=== PATIENT | female | born 1990 | race Caucasian/White ===

== ENCOUNTER 2019-11-11 11:47 | Outpatient (CLI) | payer OTHER, SELFPAY ==
--- NOTE | ~2019-11-11 | XR_ITS ---
EXAMINATION: XR knee LT 3V DATE: 11/11/2019 12:02 INDICATION: Left knee pain. Injury. TECHNIQUE: 3 views of left knee were obtained. COMPARISON: None. FINDINGS: Bone alignment is normal. No fracture. Joint spaces are well maintained. There is no knee j oint effusion. IMPRESSION: 1. Normal left knee. Reviewed, dictated and finalized at location A. IMPRESSION: 1. Normal left knee.
== END 2019-11-11 11:48 | disposition home or self-care (01) ==
PROVIDERS: PCP Family Medicine; Visit Provider Family Medicine
DX: M25.569 Pain in unspecified knee (principal)
CPT/HCPCS: 73562

== ENCOUNTER 2019-11-14 07:06 | Outpatient (CLI) | payer OTHER, SELFPAY ==
[2019-11-14 07:47] LABS: Basophils Absolute Auto 0.1 K/mm3 (0.0-0.1); Basophils Percent Auto 0.6 % (0.2-1.2); Eosinophils Absolute Auto 0.7 K/mm3 (0-0.3); Eosinophils Percent Auto 6.5 % (0-4.4); Hematocrit 40.1 % (37.0-47.0); Hemoglobin 13.2 g/dL (12.0-15.0); Immature Granulocyte Absolute 0.02 K/mm3 (0.00-0.031); Immature Granulocyte Percent A 0.2 % (0-0.5); Lymphocytes Absolute Auto 3.33 K/mm3 (0.9-3.2); Lymphocytes Percent Auto 31.9 % (18.3-44.2); Mean Corpuscular HGB Conc 32.9 g/dl (32-36); Mean Corpuscular Hemoglobin 30.4 pg (26-34); Mean Corpuscular Volume 92.4 fl (80-100); Mean Platelet Volume 9.9 fl (7.4-10.4); Monocytes Absolute Auto 0.7 K/mm3 (0.1-0.6); Monocytes Percent Auto 6.7 % (2.6-8.5); Neutrophils Absolute Auto 5.7 K/mm3 (1.3-6.7); Neutrophils Percent Auto 54.1 % (45.5-73.1); Platelet Count Result 346 k/mm3 (150-375); Red Blood Count 4.34 M/mm3 (4.2-5.4); Red Cell Distribution Width 12.9 % (11.5-14.5); White Blood Count 10.4 K/mm3 (4.5-10.0)
[2019-11-14 08:00] LABS: Alanine Aminotransferase 23 U/L (4-35); Albumin Level 4.3 g/dL (3.5-5.1); Alkaline Phosphatase 103 U/L (38-126); Aspartate Amino Transferase 23 U/L (14-36); Bilirubin,Total 0.4 mg/dL (0.2-1.3); Blood Urea Nitrogen 14 mg/dL (7-17); Carbon Dioxide 24 mmol/L (22-30); Chloride 107 mmol/L (98-107); Cholesterol 153 mg/dL (0-200); Estimated Glomerular Filt Rate > 60; Glucose 104 mg/dL (65-105); HDL Direct 58 mg/dL; Sodium 136 mmol/L (137-145); Triglycerides 64 mg/dL (<150)
[2019-11-14 08:11] LABS: LDL Cholesterol Direct 65 mg/dL
== END 2019-11-14 07:07 | disposition home or self-care (01) ==
LOC: ANHLAB 07:09
PROVIDERS: PCP Family Medicine; Visit Provider Family Medicine
DX: Z13.0 Encounter for screening for diseases of the blood and blood-forming organs and certain disorders involving the immune mechanism (principal); Z13.220 Encounter for screening for lipoid disorders; R63.5 Abnormal weight gain; Z13.1 Encounter for screening for diabetes mellitus
CPT/HCPCS: 36415; 80053; 80061; 84443; 85025

== ENCOUNTER 2020-08-11 12:23 | Outpatient (CLI) | payer OTHER, SELFPAY ==
--- NOTE | ~2020-08-11 | XR_ITS ---
XR_CERV2-3V_CR DATE: 08/11/2020 12:41 INDICATION: Neck pain. No injury. TECHNIQUE: AP, open-mouth, lateral views COMPARISON: None FINDINGS: There is reversal of cervical curvature which may be due to muscle spasm. C1 and C2 are normally aligned and the odontoid process is intact. No fracture or dislocation or lock ed facet or prevertebral soft tissue swelling. Cervical interspaces are well preserved. IMPRESSION: Reversal of cervical curvature Reviewed, dictated and finalized at Location A. Reviewed, dictated and finalized at location A.
== END 2020-08-11 12:24 | disposition home or self-care (01) ==
PROVIDERS: PCP Family Medicine; Visit Provider Family Medicine
DX: M54.2 Cervicalgia (principal)
CPT/HCPCS: 72040

== ENCOUNTER 2020-08-15 09:35 | Outpatient (CLI) | payer OTHER, SELFPAY ==
--- NOTE | ~2020-08-15 | MR_ITS ---
EXAMINATION: MR brain/brain stem wo con DATE: 08/15/2020 10:14 INDICATION: Migraine headaches. TECHNIQUE: Magnetic resonance imaging (MRI) of the brain and brainstem was performed without intraven ous contrast. Sequences included sagittal and axial T1-weighted SE, axial diffusion-weighted FS SE, a xial T2*-weighted GRE, axial T2-weighted FLAIR, and axial T2-weighted FSE. Apparent diffusion coeffic ient (ADC) maps were created. COMPARISON: None. FINDINGS: There are no areas of restricted diffusion to suggest acute infarction. No intracranial hemorrhage or abnormal intracranial mass lesion. There are scattered areas of nonspecific increased T2-weighted si gnal intensity in the cerebral white matter, predominantly involving the deep and periventricular whi te matter. There are no intraparenchymal signal abnormalities seen on the other pulse sequences. The ventricles are symmetric and normal in size. There are no abnormal extra-axial fluid collections. River w voids are seen in the cerebral arteries on the T2-weighted sequences consistent with their expected patency. Mild mucoperiosteal thickening the bilateral ethmoid and maxillary sinuses. Visualized orbi ts and soft tissues are unremarkable. IMPRESSION: 1. Normal brain. Reviewed, dictated and finalized at location A. IMPRESSION: 1. Normal brain.
== END 2020-08-15 09:36 | disposition home or self-care (01) ==
PROVIDERS: PCP Family Medicine; Visit Provider Family Medicine
DX: G43.909 Migraine, unspecified, not intractable, without status migrainosus (principal)
CPT/HCPCS: 70551

== ENCOUNTER 2020-08-27 10:59 | Outpatient (CLI) | payer OTHER, SELFPAY ==
--- NOTE | 2020-08-27 11:02 | ECHO_ITS ---
Patient Info Name: Leona Santana Age: 29 years : 1990 Gender: Female Ht: 66 in Wt: 270 lbs BSA: 2.45 m2 HR: 70 bpm BP: 132 / 99 mmHg Technical Quality: Good Exam Date: 08/27/2020 11:19 AM Exam Location: [facility] Pulmonary Patient Status: Outpatient Admit Date: 08/27/2020 Staff Ordering Physician: Loni Flores DO Corner Trimmer Operator: Mitchel Grant RDCS, RT Attending Provider: Loni Flores DO Referring Physician: Sandra CADENA; Exam Type: CA echo doppler color flow Study Info Indications I34.0 - Nonrheumatic mitral (valve) insufficiency Complete two-dimensional, color flow and Doppler transthoracic echocardiogram is performed. Strain analysis performed. Summary 1. Complete two-dimensional, color flow and Doppler transthoracic echocardiogram is performed. 2. Left ventricular chamber dimension is normal. 3. Left ventricular systolic function is normal, estimated at 60-65%. 4. The left ventricular diastolic function is normal. 5. Global longitudinal strain is mildly abnormal at -16.3%. 6. There is mild mitral valve regurgitation. 7. There is mild tricuspid valve regurgitation. 8. No pulmonary hypertension, estimated pulmonary arterial systolic pressure is 25 mmHg. Left Ventricle Tissue doppler is not performed. Global longitudinal strain is mildly abnormal at -16.3%. Left ventricular chamber dimension is normal. Left ventricular systolic function is normal, estimated at 60-65%. The left ventricular diastolic function is normal. Right Ventricle Right ventricular chamber dimension is normal. Right ventricular systolic function is normal. Left Atria Left atrial chamber dimension is normal. Right Atria Right atrial chamber dimension is normal. Aortic Valve The aortic valve is not well visualized. Cannot determine number of aortic valve leaflets. There is no aortic valve stenosis. There is no aortic valve regurgitation. Pulmonic Valve There is no pulmonic regurgitation. Mitral Valve There is no mitral valve stenosis. There is mild mitral valve regurgitation. Tricuspid Valve There is mild tricuspid valve regurgitation. No pulmonary hypertension, estimated pulmonary arterial systolic pressure is 25 mmHg. Pericardium/Pleural There is no pericardial effusion. Inferior Vena Cava Normal inferior vena cava with >50% collapse upon inspiration consistent with normal right atrial pressure, 5 mmHg. Aorta The aortic root size at the sinus of Valsalva is normal. Left Ventricular Outflow Tract Name Value Normal LVOT 2D LVOT Diameter 2.0 cm LVOT Doppler LVOT Peak Gradient 4 mmHg LVOT Mean Gradient 3 mmHg LVOT VTI 25 cm LVOT VTI/AV VTI Ratio 0.8 LVOT Stroke Volume 77 ml LVOT CO 5.4 l/min LVOT CI 2.2 l/min/m2 Mitral Valve Name Value Nor
== END 2020-08-27 11:00 | disposition home or self-care (01) ==
PROVIDERS: PCP Family Medicine; Visit Provider Family Medicine
DX: I34.0 Nonrheumatic mitral (valve) insufficiency (principal)
CPT/HCPCS: 93306

== ENCOUNTER 2020-10-29 09:00 | Outpatient (RCR) | payer OTHER, SELFPAY ==
--- NOTE | 2020-09-17 09:21 | PTOPEVAL ---
PHYSICAL THERAPY EVALUATION Thank you for referring Leona Santana to [facility].? Leona was evaluated for the dx of cervicalgia/HUERTA. The patient is scheduled to be seen for therapy? 2 x/week for 4 weeks. Please review, sign, date and return this plan of care ALEXYS. I agree with and certify that the following plan of care is medically necessary. Referring Physician Date Attending Provider: DO Leonarda HoneycuttPT Outpatient Evaluation Start: 09/17/20 08:24 Freq: Status: Active Protocol: Document 09/17/20 08:24 MLV (Rec: 09/17/20 09:17 MLV [id number]) Therapy Assessment Status Assessment Status Evaluation Evaluation Information Problem Diagnosis cervicalgia/HUERTA Cause no injury Additional Evaluation Detail Pt reports having HUERTA for many years but the HUERTA has gotten worse and more frequent in the last 6-12 months. 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 Before, the HUERTA occurred about 2-3 times a week rated 3 -4 of 10 pain and had migraines about 2-4x a month ( severe). Pt has 2 children she cares for and does housework/ cooking and started working out about 2 months ago. Pt goes to a gym for workouts and is focused on LE strength and cardio. Diagnostic Tests X-Rays For This Problem Yes: reverse spinal curvature due to spasms Pain Assessment Timing of Pain Assessment Timing of Pain Assessment Assessment Pain Scale Pain Scale Used Numeric (1 - 10) Self Report Pain Assessment Posterior Neck Reported Pain Level 2 Pain Description Tightness Pain Frequency Acute,Chronic Greatest Pain Intensity 6 Pain Aggravating Factors Exercise/Activity Pain Behaviors Guarding Head Reported Pain Level 2 Pain Description Aching Pain Frequency Acute,Chronic Greatest Pain Intensity 5 Pain Aggravating Factors None Pain Behaviors Guarding Pain Score Pain Score 2,2: Self Report Interventions Used Interventions Used By Clinicians Education,Electrical Stimulation,Exercise,Heat Pain Relief Interventions Used By Medication Patient Other Alleviating Interventions tylenol Cervical and Lumbar ROM
--- NOTE | 2020-10-13 07:30 | PCPTNOTE ---
Patient called & cancelled scheduled appointment this date due to over slept unable to attend
--- NOTE | 2020-10-20 07:52 | PCPTNOTE ---
Patient did not show up for scheduled appointment this date; patient answered phone call stating she over slept was unable to make it in.
--- NOTE | 2020-10-26 08:09 | PCPTNOTE ---
Patient did not show up for scheduled appointment this date; left voicemail for reminder call.
--- NOTE | 2020-10-29 09:51 | PTOPEVAL ---
PHYSICAL THERAPY DISCHARGE Thank you for referring Leona Santana to [facility].? The patient has completed 6 visits for the dx of cervicalgia/HUERTA with goals met. DC PT. Please review, sign, date and return this plan of care ALEXYS. I agree with and certify the following plan of care. Referring Physician Date Attending Provider: Loni Flores DO *PT Outpatient Discharge Start: 09/17/20 08:24 Freq: Status: Active Protocol: Document 10/29/20 09:02 MLV (Rec: 10/29/20 09:50 MLV [id number]) Therapy Assessment Status Assessment Status Discharge Evaluation Information Problem Diagnosis cervicalgia/HUERTA Cause no injury Additional Evaluation Detail The patient reports having an appt the 8th for follow up. The patient feels her mobility is 75% better but the headaches are about 25% better. Pt denies trouble with the exercises and is still going to the gym with a workout that works for her. Pt has modifications for neck issues with workouts. Pain Assessment Timing of Pain Assessment Timing of Pain Assessment Assessment Pain Scale Pain Scale Used Numeric (1 - 10) Self Report Pain Assessment Posterior Neck Reported Pain Level 0 Head Reported Pain Level 2 Radicular Pain Location sinus pain today Pain Frequency Acute,Chronic Pain Score Pain Score 0,2: Self Report Interventions Used Interventions Used By Clinicians Electrical Stimulation,Heat, Manual Therapy Techniques Pain Relief Interventions Used By Heat,Medication Patient Cervical and Lumbar ROM Cervical ROM Cervical Flexion (0-60) 70 Query Text:Active in Degrees Cervical Extension (0-70) 55 Query Text:Active in Degrees Cervical Lateral Flexion Right (0-50) 55 Query Text:Active in Degrees Cervical Lateral Flexion Left (0-50) 52 Query Text:Active in Degrees Cervical Rotation Right (0-90) 70 Query Text:Active in Degrees Cervical Rotation Left (0-90) 69 Query Text:Passive in Degrees Posture Posture Sitting Position Additional Posture Comments min to moderate decrease in dowagers hump Palpation Assessment Palpation Palpation 50-75% decrease in spasms at cervical paraspinals, upper traps, levator scapulae, mid
== END 2020-11-01 09:33 | disposition home or self-care (01) ==
LOC: ANHPT 09:00
PROVIDERS: PCP Family Medicine; Visit Provider Family Medicine
DX: M54.2 Cervicalgia (principal); M62.838 Other muscle spasm; G44.209 Tension-type headache, unspecified, not intractable
CPT/HCPCS: 97014; 97110; 97140; 97161; G0283

== ENCOUNTER 2021-05-13 15:56 | Outpatient (CLI) | payer OTHER, SELFPAY ==
--- NOTE | ~2021-05-13 | XR_ITS ---
EXAMINATION: XR shoulder RT min 2V DATE: 05/13/2021 16:32 INDICATION: Right shoulder pain. TECHNIQUE: 4 views of right shoulder were obtained. COMPARISON: None. FINDINGS: Bone alignment is normal. No fracture. There is osteolysis of distal clavicle. The glenohum eral joint is normal. IMPRESSION: 1. Osteolysis of the distal clavicle, which may be seen with repetitive microtrauma or less commonly rheumatoid arthritis or hyperparathyroidism. Reviewed, dictated and finalized at location A. NG PAN TENDER IMPRESSION: 1. Osteolysis of the distal clavicle, which may be seen with repetitive microtr auma or less commonly rheumatoid arthritis or hyperparathyroidism.
== END 2021-05-13 15:57 | disposition home or self-care (01) ==
LOC: ANHIMG 15:58
PROVIDERS: PCP Family Medicine; Visit Provider Family Medicine
DX: M25.511 Pain in right shoulder (principal); M89.511 Osteolysis, right shoulder
CPT/HCPCS: 73030

== ENCOUNTER 2021-07-18 07:00 | Outpatient (RCR) | payer OTHER, SELFPAY ==
--- NOTE | 2021-06-13 08:16 | PTOPEVAL ---
Thank you for referring Leona Santana to [facility] [place].? The patient is scheduled to be seen for therapy? 2 x/week for 5 weeks. Please review, sign, date and return this plan of care ALEXYS. I agree with and certify that the following plan of care is medically necessary. 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 She is not working out and intermittently performs neck exercises. x-ray: Osteolysis of the distal clavicle Subjective Information She was performing bench Query Text:As Reported By Patient/ presses when she felt a pop in Family her shoulder with instant pain. She had increased ache of her shoulder. Reports the pain has increased recently. C/o ache, sharp pain. She uses ice/heat or OTC medication. She did receive an injection. Previous Treatments Previous Treatments For This Problem neck September 2020 Pain Assessment Right Shoulder(s) Reported Pain Level 0 Pain Description Aching,Sharp Lowest Pain Intensity 0 Greatest Pain Intensity 9 Pain Aggravating Factors ADL's,Lifting,Prolonged Position Upper Extremity Range of Motion Scapular/ Shoulder Range of Motion Left Shoulder Flexion - Active 155 Shoulder Extension - Active 40 Shoulder Abduction - Active 160 Shoulder Medial Rotation - Active T7:Reach Behind the Back Shoulder Lateral Rotation - Active T2:Reach Behind the Head Right Scapular: Retraction Hypomobile Scapular: Protraction Hypomobile Scapular Downward Rotation Hypomobile Scapular Upward Rotation Hypomobile Shoulder Flexion - Active 140 Shoulder Extension - Active 48 Shoulder Abduction - Active 150 Shoulder Medial Rotation - Active 60 Shoulder Medial Rotation - Active T11:Reach Behind the Back Shoulder Lateral Rotation - Active 90 Shoulder Lateral Rotation - Active T2:Reach Behind the Head Scapular/Shoulder Range of Motion Pain Limitations Upper Extremity Muscle Strength Testing Scapular/Shoulder Left Scapular Retraction - Middle Trapezius 3 Fair Scapular Retraction - Lower Trapezius 3- Fair - Shoulder Flexion Strength 5 Normal Shoulder Extension Strength 5 Normal Shoulder Abduction Strength 5 Normal Shoulder Medial Rotation
--- NOTE | 2021-06-27 07:20 | PCPTNOTE ---
Patient did not show up for scheduled appointment this date. Unable to call pt due to phone number on file is not a working number.
--- NOTE | 2021-06-29 10:33 | PCPTNOTE ---
Patient called & cancelled scheduled appointment this date due to bad weather.
--- NOTE | 2021-07-07 17:47 | PCPTNOTE ---
Patient was seen on SundayJuly 042021, received treatment for ultrasound with the use of biofreeze and ultrasound gel to right anterior shoulder for pain management with continuous mode setting, 1.5w/cm2 for intensity for 8minutes. This note with take place for documentation for ultrasound charge that was billed for service that date.
--- NOTE | 2021-07-14 13:36 | PCPTNOTE ---
Patient agreed to cancel appointment due to poor weather. She is going to do some extra stretching tonight and will plan to be at her re-assessment next week.
--- NOTE | 2021-07-18 08:16 | PTOPEVAL ---
Physical Therapy Progress Note Thank you for referring Leona Santana to [facility].?Leona has received 7 therapy visits to address her shoulder limitations. She is progressing slowly towards her therapy goals. The patient is scheduled to be seen for therapy? 2 x/week for 3 weeks. Please review, sign, date and return this plan of care ALEXYS. I agree with and certify that the following plan of care is medically necessary. 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 x-ray: Osteolysis of the distal clavicle Subjective Information Reports her shoulder is Query Text:As Reported By Patient/ feeling better, but cont to Family have periods of increased pain. She had increased ache of her shoulder. Increased pain noted with reaching task in all directions, lifting and ADL's. MD visit on 07/20/21. Pain Assessment Right Shoulder(s) Reported Pain Level 1 Pain Description Aching Lowest Pain Intensity 1 Greatest Pain Intensity 7 Pain Aggravating Factors ADL's,Exercise/Activity, Lifting Upper Extremity Range of Motion Scapular/ Shoulder Range of Motion Right Scapular: Retraction Hypomobile Scapular: Protraction Hypomobile Scapular Downward Rotation Hypomobile Scapular Upward Rotation Hypomobile Shoulder Flexion - Active 153 Shoulder Extension - Active 50 Shoulder Abduction - Active 140 Shoulder Medial Rotation - Active 75 Shoulder Medial Rotation - Active T11:Reach Behind the Back Shoulder Lateral Rotation - Active 75 Shoulder Lateral Rotation - Active T2:Reach Behind the Head Scapular/Shoulder Range of Motion Pain Limitations Upper Extremity Muscle Strength Testing Scapular/Shoulder Left Scapular Retraction - Middle Trapezius 3+ Fair + Scapular Retraction - Lower Trapezius 3 Fair Shoulder Flexion Strength 5 Normal Shoulder Extension Strength 5 Normal Shoulder Abduction Strength 5 Normal Shoulder Medial Rotation Strength 5 Normal Shoulder Lateral Rotation Strength 5 Normal Right Scapular Retraction - Middle Trapezius 3+ Fair + Scapular Retraction - Lower Trapezius 3 Fair Shoulder Flexion Strength 3+ Fair + Shoulder Extension Strength 5 Normal Shoulder Abduction Strength 4- Good - Shoulder Medial Rotation Strength 5 Normal Shoulder Lateral Rotation Strength 5 Normal Shoulder Strength Comments pain with fl
--- NOTE | 2021-07-21 12:23 | PCPTNOTE ---
Patient called & cancelled all scheduled appointment this date due to having follow-up appointment with MD who stated she can stop therapy and just focus on stretches and exercises at home. Notified PT to discharge patient at this time.
--- NOTE | 2021-07-22 07:42 | PCPTNOTE ---
Admitting Provider: Attending Provider: Marino Garcia MD Patient:Leona Santana Date of :1990 Physical Therapy Discharge Summary Patient has been recommended for discharge from therapy services per doctor. She has attended 7 therapy visits with slow progress towards her therapy goals. She has been instructed in a HEP to perform to improve her UE limitations. The goals have been partially met at this time. Thank you for referring this patient to [facility]. Please review, sign, date and return this discharge summary ALEXYS. I have been updated about the patient's current status and I agree with discharge from the above service at this time. Referring Physician Date
== END 2021-07-22 11:04 | disposition home or self-care (01) ==
LOC: ANHPT 07:00
PROVIDERS: PCP Family Medicine; Visit Provider Orthopaedic Surgery
DX: M75.81 Other shoulder lesions, right shoulder (principal); M75.51 Bursitis of right shoulder
CPT/HCPCS: 97014; 97035; 97110; 97140; 97162; G0283

== ENCOUNTER 2021-10-14 12:34 | Outpatient (CLI) | payer OTHER, SELFPAY ==
--- NOTE | ~2021-10-14 | CT_ITS ---
EXAMINATION: CT abdomen pelvis w con DATE: 10/14/2021 13:02 INDICATION: Abdominal pain TECHNIQUE: Computed tomography (CT) of the abdomen and pelvis was performed with 75 cc Omnipaque 300 intravenous contrast. The dose-length product was 1316.39 mGy-cm. Automated exposure control and iter ative reconstruction technique were employed. COMPARISON: None. FINDINGS: Lung bases are unremarkable. Heart size normal. No significant pleural or pericardial effus ion. No significant vascular abnormality. No lymphadenopathy. The liver, spleen, pancreas, adrenal glands and kidneys are unremarkable. There are cholecystectomy c lips. Nonobstructive bowel gas pattern. No free air or free fluid. No acute osseous abnormality. No a cute osseous abnormality. IMPRESSION: 1. No acute abdominal abnormality. Reviewed, dictated and finalized at location B.
[2021-10-14 13:27] LABS: Basophils Absolute Auto 0.1 K/mm3 (0.0-0.1); Basophils Percent Auto 0.5 % (0.2-1.2); Eosinophils Absolute Auto 0.2 K/mm3 (0-0.3); Hematocrit 36.5 % (37.0-47.0); Hemoglobin 11.9 g/dL (12.0-15.0); Immature Granulocyte Absolute 0.03 K/mm3 (0.00-0.031); Immature Granulocyte Percent A 0.3 % (0-0.5); Lymphocytes Absolute Auto 2.97 K/mm3 (0.9-3.2); Lymphocytes Percent Auto 26.7 % (18.3-44.2); Mean Corpuscular HGB Conc 32.6 g/dl (32-36); Mean Corpuscular Hemoglobin 30.4 pg (26-34); Mean Corpuscular Volume 93.4 fl (80-100); Mean Platelet Volume 10.3 fl (7.4-10.4); Monocytes Absolute Auto 0.8 K/mm3 (0.1-0.6); Monocytes Percent Auto 7.1 % (2.6-8.5); Neutrophils Absolute Auto 7.1 K/mm3 (1.3-6.7); Neutrophils Percent Auto 63.4 % (45.5-73.1); Platelet Count Result 315 k/mm3 (150-375); Red Blood Count 3.91 M/mm3 (4.2-5.4); Red Cell Distribution Width 12.7 % (11.5-14.5); White Blood Count 11.1 K/mm3 (4.5-10.0)
[2021-10-14 13:39] LABS: Alanine Aminotransferase 16 U/L (6-35); Albumin Level 3.9 g/dL (3.5-5.1); Alkaline Phosphatase 76 U/L (38-126); Amylase 142 U/L (30-110); Anion Gap 6 mmol/L (8-16); Aspartate Amino Transferase 21 U/L (14-36); Bilirubin,Total 0.2 mg/dL (0.2-1.3); Blood Urea Nitrogen 10 mg/dL (7-17); Calcium 8.3 mg/dL (8.4-10.2); Carbon Dioxide 22 mmol/L (22-30); Chloride 106 mmol/L (98-107); Estimated Glomerular Filt Rate > 60; Glucose 102 mg/dL (65-110); Lipase 128 U/L (23-300); Potassium 4.5 mmol/L (3.4-5.0); Sodium 134 mmol/L (137-145)
[2021-10-14 14:05] LABS: SPREG INTERNAL CONTROL Positive; Serum Qual hCG Negative
[2021-10-14 15:50] LABS: Thyroid Stimulating Hormone Reflex 0.449 uIU/mL (0.465-4.68)
[2021-10-14 17:20] LABS: Free T4 Free Thyroxine Reflex 0.85 ng/dL (0.78-2.19)
[2021-10-14 19:50] LABS: Total Triiodothyronine (T3) 1.38 NG/ML (0.97-1.69)
== END 2021-10-14 12:35 | disposition home or self-care (01) ==
LOC: ANHIMG 12:36
PROVIDERS: PCP Family Medicine; Visit Provider Family Medicine
DX: R10.9 Unspecified abdominal pain (principal); R19.7 Diarrhea, unspecified
CPT/HCPCS: 36415; 74177; 80053; 82150; 83690; 84439; 84443; 84480; 84703; 85025; 87086; Q9967

== ENCOUNTER 2022-02-16 16:28 | Outpatient (CLI) | payer OTHER, SELFPAY ==
[2022-02-16 17:14] LABS: Beta HCG Quantitative < 2.39 mIU/ML
== END 2022-02-16 16:29 | disposition home or self-care (01) ==
LOC: ANHLAB 16:30
PROVIDERS: PCP Family Medicine; Visit Provider Physician Assistant
DX: N92.6 Irregular menstruation, unspecified (principal)
CPT/HCPCS: 36415; 84702

== ENCOUNTER 2022-04-24 16:30 | Outpatient (CLI) | payer OTHER, SELFPAY ==
[2022-04-24 16:59] LABS: Basophils Absolute Auto 0.1 K/mm3 (0.0-0.1); Basophils Percent Auto 0.6 % (0.2-1.2); Eosinophils Absolute Auto 0.2 K/mm3 (0-0.3); Eosinophils Percent Auto 1.8 % (0-4.4); Hematocrit 37.9 % (37.0-47.0); Hemoglobin 12.3 g/dL (12.0-15.0); Immature Granulocyte Absolute 0.03 K/mm3 (0.00-0.031); Immature Granulocyte Percent A 0.3 % (0-0.5); Lymphocytes Absolute Auto 3.67 K/mm3 (0.9-3.2); Lymphocytes Percent Auto 35.6 % (18.3-44.2); Mean Corpuscular HGB Conc 32.5 g/dl (32-36); Mean Corpuscular Hemoglobin 30.6 pg (26-34); Mean Corpuscular Volume 94.3 fl (80-100); Mean Platelet Volume 9.9 fl (7.4-10.4); Monocytes Absolute Auto 0.6 K/mm3 (0.1-0.6); Monocytes Percent Auto 5.5 % (2.6-8.5); Neutrophils Absolute Auto 5.8 K/mm3 (1.3-6.7); Neutrophils Percent Auto 56.2 % (45.5-73.1); Platelet Count Result 310 k/mm3 (150-375); Red Blood Count 4.02 M/mm3 (4.2-5.4); White Blood Count 10.3 K/mm3 (4.5-10.0)
[2022-04-24 17:09] LABS: Alanine Aminotransferase 17 U/L (6-35); Albumin Level 4.4 g/dL (3.5-5.1); Alkaline Phosphatase 87 U/L (38-126); Anion Gap 11 mmol/L (8-16); Aspartate Amino Transferase 22 U/L (14-36); Bilirubin,Total 0.2 mg/dL (0.2-1.3); Blood Urea Nitrogen 14 mg/dL (7-17); Calcium 8.9 mg/dL (8.4-10.2); Carbon Dioxide 22 mmol/L (22-30); Chloride 104 mmol/L (98-107); Estimated Glomerular Filt Rate > 60; Glucose 95 mg/dL (65-110); Potassium 4.2 mmol/L (3.4-5.0); Sodium 137 mmol/L (137-145)
== END 2022-04-24 16:31 | disposition home or self-care (01) ==
LOC: ANHIMG 16:31
PROVIDERS: PCP Family Medicine; Visit Provider Physician Assistant
DX: F41.1 Generalized anxiety disorder (principal); D64.9 Anemia, unspecified
CPT/HCPCS: 36415; 80053; 84443; 85025

== ENCOUNTER 2022-10-06 15:45 | Outpatient (CLI) | payer OTHER, SELFPAY ==
--- NOTE | ~2022-10-06 | XR_ITS ---
XR knee RT 3V 10/06/2022 16:49 INDICATION: Right knee pain PROCEDURE: 4 views right knee COMPARISON: No prior studies for comparison. FINDINGS: Fracture, dislocation or subluxation is not identified. No significant joint effusion. The soft tissues appear within normal limits. No foreign bodies are identified. IMPRESSION: 1: NO ACUTE BONE OR JOINT ABNORMALITY IDENTIFIED. Reviewed, dictated and finalized at location B.
== END 2022-10-06 15:46 | disposition home or self-care (01) ==
PROVIDERS: PCP Family Medicine; Visit Provider Family Medicine
DX: M25.461 Effusion, right knee (principal)
CPT/HCPCS: 73562

== ENCOUNTER 2022-10-27 14:57 | Outpatient (CLI) | payer OTHER, SELFPAY ==
[2022-10-27 16:50] LABS: Appearance Urine Clear (Clear); Bacteria Urine None Seen /hpf; Bilirubin Urine Negative (Negative); Blood Urine 1+ (Negative); Color Urine Yellow (Yellow); Glucose Urine UA Negative (Negative); Ketones Urine Negative (Negative); Leukocyte Esterase Ur 1+ LEU/UL (Negative); Nitrate Urine Negative (Negative); Non Pathogenic Casts 0-2; Protein Urine Negative (Negative); Specific Grav Ur 1.009 (1.001-1.035); Squamous Epithelial Cell Urine None seen /hpf (Few); Urobilinogen Urine 0.2 mg/dL (<2.0); WBC Urine 21-50 /hpf; pH Urine 6.5 (5.0-9.0)
[2022-10-27 16:53] LABS: Add Urine Microscopic? YES
== END 2022-10-27 14:58 | disposition home or self-care (01) ==
LOC: ANHIMG 14:57
PROVIDERS: PCP Family Medicine; Visit Provider Physician Assistant
DX: R30.0 Dysuria (principal)
CPT/HCPCS: 81001; 87077; 87086; 87186

== ENCOUNTER 2023-08-01 14:51 | Outpatient (CLI) | payer OTHER, SELFPAY ==
--- NOTE | ~2023-08-01 | XR_ITS ---
EXAMINATION: XR shoulder LT min 2V DATE: 08/01/2023 17:25 INDICATION: Left shoulder pain. TECHNIQUE: 4 views of left shoulder were obtained. COMPARISON: None. FINDINGS: Bone alignment is normal. No fracture. There is osteolysis of distal clavicle. The humeral joint is normal. IMPRESSION: 1. Osteolysis of distal clavicle. This finding may be seen with repetitive microtrauma, hyperparathyr oidism, or rheumatoid arthritis. Reviewed, dictated and finalized at location E. RINTENDENT LOGGING IMPRESSION: 1. Osteolysis of distal clavicle. This finding may be seen with repetitive micr otrauma, hyperparathyroidism, or rheumatoid arthritis.
--- NOTE | ~2023-08-01 | XR_ITS ---
EXAMINATION: XR hip RT min 2V DATE: 08/01/2023 17:25 INDICATION: Right hip pain. TECHNIQUE: 2 views of right hip were obtained. COMPARISON: None. FINDINGS: Bone alignment is normal. No fracture. Right hip joint space is normal. IMPRESSION: 1. Normal right hip. Reviewed, dictated and finalized at location E. OGRAPHIC CAMERA OPERATOR IMPRESSION: 1. Normal right hip.
== END 2023-08-01 14:52 | disposition home or self-care (01) ==
LOC: ANHIMG 14:54
PROVIDERS: PCP Family Medicine; Visit Provider Physician Assistant
DX: M89.512 Osteolysis, left shoulder (principal); M25.551 Pain in right hip
CPT/HCPCS: 73030; 73502

== ENCOUNTER 2023-09-10 12:07 | Outpatient (CLI) | payer OTHER, SELFPAY ==
[2023-09-10 12:58] LABS: Hematocrit 40.3 % (37.0-47.0); Hemoglobin 13.3 g/dL (12.0-15.0); Mean Corpuscular Hemoglobin 31.2 pg (26-34); Mean Corpuscular Volume 94.6 fl (80-100); Mean Platelet Volume 10.3 fl (7.4-10.4); Platelet Count Result 306 k/mm3 (150-375); Red Blood Count 4.26 M/mm3 (4.2-5.4); Red Cell Distribution Width 12.6 % (11.5-14.5); White Blood Count 8.7 K/mm3 (4.5-10.0)
[2023-09-10 13:15] LABS: CRP < 0.5 mg/dL (<1.0)
[2023-09-10 13:31] LABS: Erythrocyte Sedimentation Rate 8 mm/hr (0-20)
[2023-09-12 15:08] LABS: Cyclic Citrullinated Peptide <16 UNITS
== END 2023-09-10 12:08 | disposition home or self-care (01) ==
LOC: ANHLAB 12:10
PROVIDERS: PCP Family Medicine; Visit Provider Orthopaedic Surgery
DX: M06.9 Rheumatoid arthritis, unspecified (principal)
CPT/HCPCS: 36415; 85027; 85652; 86038; 86039; 86140; 86200; 86430

== ENCOUNTER 2023-12-10 12:25 | Outpatient (CLI) | payer OTHER, SELFPAY ==
--- NOTE | ~2023-12-10 | XR_ITS ---
XR hip BI 2V w AP pelvis Ordering provider: Kenny Grijalva, History: . POLYARTHROPATHY, INFLAMMATORY PAINS BILATERALLY . Comparison: August 01, 2023 FINDINGS: BONES: No acute fracture or dislocation. HIP JOINT SPACES: Normal. SACROILIAC JOINT SPACES/LUMBAR SPINE: The sacroiliac joint spaces are normal. Normal visualized lower lumbar spine. PUBIC SYMPHYSIS: Normal. SOFT TISSUES: Normal. IMPRESSION: No acute osseous abnormality of the bilateral hips and pelvis. Reviewed, dictated and finalized at location A.
== END 2023-12-10 12:26 | disposition home or self-care (01) ==
LOC: ANHIMG 12:27
PROVIDERS: PCP Family Medicine; Visit Provider Internal Medicine
DX: M06.4 Inflammatory polyarthropathy (principal); G47.00 Insomnia, unspecified; Z79.1 Long term (current) use of non-steroidal anti-inflammatories (NSAID)
CPT/HCPCS: 73521

== ENCOUNTER 2024-02-12 11:32 | Outpatient (CLI) | payer OTHER, SELFPAY ==
[2024-02-12 12:48] LABS: Alanine Aminotransferase 16 U/L (6-35); Albumin Level 4.3 g/dL (3.5-5.1); Alkaline Phosphatase 53 U/L (38-126); Anion Gap 9 mmol/L (4-12); Aspartate Amino Transferase 19 U/L (14-36); Bilirubin,Total 0.6 mg/dL (0.2-1.3); Blood Urea Nitrogen 15 mg/dL (7-17); CRP < 0.5 mg/dL (<1.0); Calcium 8.8 mg/dL (8.4-10.2); Carbon Dioxide 23 mmol/L (22-30); Chloride 106 mmol/L (98-107); Estimated Glomerular Filt Rate > 60; Glucose 70 mg/dL (65-110); Potassium 4.4 mmol/L (3.4-5.0); Sodium 138 mmol/L (137-145)
[2024-02-12 12:50] LABS: Basophils Absolute Auto 0.1 K/mm3 (0.0-0.1); Basophils Percent Auto 0.7 % (0.2-1.2); Eosinophils Absolute Auto 0.3 K/mm3 (0-0.3); Eosinophils Percent Auto 3.1 % (0-4.4); Hematocrit 36.8 % (37.0-47.0); Hemoglobin 11.7 g/dL (12.0-15.0); Immature Granulocyte Absolute 0.03 K/mm3 (0.00-0.031); Immature Granulocyte Percent A 0.4 % (0-0.5); Lymphocytes Absolute Auto 2.57 K/mm3 (0.9-3.2); Lymphocytes Percent Auto 31.7 % (18.3-44.2); Mean Corpuscular HGB Conc 31.8 g/dl (32-36); Mean Corpuscular Hemoglobin 31.8 pg (26-34); Mean Platelet Volume 10.4 fl (7.4-10.4); Monocytes Absolute Auto 0.6 K/mm3 (0.1-0.6); Monocytes Percent Auto 6.8 % (2.6-8.5); Neutrophils Absolute Auto 4.6 K/mm3 (1.3-6.7); Neutrophils Percent Auto 57.3 % (45.5-73.1); Platelet Count Result 315 k/mm3 (150-375); Red Blood Count 3.68 M/mm3 (4.2-5.4); Red Cell Distribution Width 14.6 % (11.5-14.5); White Blood Count 8.1 K/mm3 (4.5-10.0)
[2024-02-12 13:12] LABS: Free T4 Free Thyroxine 1.02 ng/mL (0.78-2.19); Vitamin D 25 Hydroxy 32.1 ng/mL
[2024-02-12 13:16] LABS: Hemoglobin A1C 5.2 % (<5.7); Thyroid Stimulating Hormone 0.197 uIU/mL (0.465-4.680)
[2024-02-12 13:26] LABS: Hepatitis B Surface Antigen Negative (Negative)
[2024-02-14 12:38] LABS: NIL 0.05 IU/mL; Quantiferon TB Plus, 1T NEGATIVE (NEGATIVE)
[2024-02-14 15:59] LABS: Hepatitis C RNA, Quant PCR <15 NOT DETECTED IU/mL (NOT DETECTED)
[2024-02-14 16:44] LABS: Hepatitis B Core Ab Total NON-REACTIVE (NON-REACTIVE)
== END 2024-02-12 11:33 | disposition home or self-care (01) ==
PROVIDERS: PCP Family Medicine; Visit Provider Nurse Practitioner
DX: R63.4 Abnormal weight loss (principal); E55.9 Vitamin D deficiency, unspecified; G47.00 Insomnia, unspecified; Z79.1 Long term (current) use of non-steroidal anti-inflammatories (NSAID); M06.09 Rheumatoid arthritis without rheumatoid factor, multiple sites; M45.9 Ankylosing spondylitis of unspecified sites in spine
CPT/HCPCS: 36415; 80053; 82306; 82607; 83036; 84439; 84443; 85025; 86140; 86480; 86704; 87340; 87522

== ENCOUNTER 2024-03-11 14:30 | Outpatient (CLI) | payer OTHER, SELFPAY ==
--- NOTE | ~2024-03-11 | NM_ITS ---
EXAMINATION: NM thyroid scan w uptake DATE: 03/12/2024 15:27 INDICATION: Other specified abnormal findings of blood chemistry. COMPARISON: None. TECHNIQUE: 0.315 mCi I-123 was administered orally. Scintigraphic images of the thyroid gland were o btained at 24 hours. Thyroid uptake was calculated by the technologist. FINDINGS: The thyroid uptake is 27% (normal 10-30%), with the right lobe measuring 13% uptake and the left 14%. There is no focal area of decreased or increased activity to suggest hypofunctioning or hyperfunctio sierra nodule. IMPRESSION: 1. Normal thyroid scintigraphy and 24-hour iodine uptake. Reviewed, dictated and finalized at location A.
== END 2024-03-11 14:31 | disposition home or self-care (01) ==
LOC: ANHIMG 14:30
PROVIDERS: PCP Family Medicine; Visit Provider Physician Assistant
DX: R79.89 Other specified abnormal findings of blood chemistry (principal); R63.4 Abnormal weight loss
CPT/HCPCS: 78014; A9516

== ENCOUNTER 2024-06-16 16:09 | Outpatient (CLI) | payer OTHER, SELFPAY ==
[2024-06-16 16:51] LABS: Basophils Percent Auto 0.7 % (0.2-1.2); Eosinophils Absolute Auto 0.1 K/mm3 (0-0.3); Eosinophils Percent Auto 1.1 % (0-4.4); Hematocrit 35.6 % (37.0-47.0); Hemoglobin 11.8 g/dL (12.0-15.0); Immature Granulocyte Absolute 0.01 K/mm3 (0.00-0.031); Immature Granulocyte Percent A 0.2 % (0-0.5); Lymphocytes Absolute Auto 2.02 K/mm3 (0.9-3.2); Lymphocytes Percent Auto 43.8 % (18.3-44.2); Mean Corpuscular HGB Conc 33.1 g/dl (32-36); Mean Corpuscular Hemoglobin 32.5 pg (26-34); Mean Corpuscular Volume 98.1 fl (80-100); Mean Platelet Volume 9.9 fl (7.4-10.4); Monocytes Absolute Auto 0.4 K/mm3 (0.1-0.6); Monocytes Percent Auto 7.6 % (2.6-8.5); Neutrophils Absolute Auto 2.2 K/mm3 (1.3-6.7); Neutrophils Percent Auto 46.6 % (45.5-73.1); Platelet Count Result 273 k/mm3 (150-375); Red Blood Count 3.63 M/mm3 (4.2-5.4); Red Cell Distribution Width 13.3 % (11.5-14.5); White Blood Count 4.6 K/mm3 (4.5-10.0)
[2024-06-16 17:07] LABS: Alanine Aminotransferase 28 U/L (6-35); Albumin Level 4.1 g/dL (3.5-5.1); Alkaline Phosphatase 73 U/L (38-126); Anion Gap 11 mmol/L (4-12); Aspartate Amino Transferase 28 U/L (14-36); Bilirubin,Total 0.4 mg/dL (0.2-1.3); Blood Urea Nitrogen 12 mg/dL (7-17); Calcium 8.7 mg/dL (8.4-10.2); Carbon Dioxide 22 mmol/L (22-30); Chloride 104 mmol/L (98-107); Estimated Glomerular Filt Rate > 60; Glucose 89 mg/dL (65-110); Potassium 4.3 mmol/L (3.4-5.0); Sodium 137 mmol/L (137-145)
[2024-06-16 17:30] LABS: Free T4 Free Thyroxine 0.86 ng/dL (0.78-2.19)
[2024-06-16 17:55] LABS: HIV 1/2 Ab P24 Ag Result Negative (Negative)
[2024-06-17 08:53] LABS: Triiodothyronine T3 Free 3.1 pg/mL (2.3-4.2)
[2024-06-18 10:47] LABS: Thyroid Peroxidase Antibodies <1 IU/mL (<9)
--- OUTSIDE RECORDS SUMMARY | 2024-06-19 14:41 | XMS_ITS | Continuity of Care Document ---
Author Organization [facility] [employer] Address [address] [place] [address] Phone Care Team Providers Care Black Powder Glazing Operator Name Role Phone Parisa Patel DMD Unavailable Unavailabl e Procedures Procedure Date Limit Oral Eval-prob Focused Intraoral Periapical First Balwinder 18 Intraor Periapical Ea Add Film 18 Bitewing Single Film Advance Directives Directive Yes / No Effective Date File Name No Information Encounters Encounter Description Practice Location Reason(s) For Visit Diagnoses Date Provider Providers Copied on Encounter [facility], [address], [place], [place], [id number], [place] tel:[phone] [facility] [place]-Acute apical periodontitis of pulpal origin [address], [place], [facility], . tel:[phone] Referring Provider: Parisa Jamison, [address], [place], [facility]. tel:[phone] Family History Family Member Type Diagnosis Age At Onset No Information Payers Payer name Insurance type Covered republican ID Authorkrishnaa shashi(s) D [employer] [id number] Social History Type Description Quantity Date Captured Comments Sex Female Smoking Status No Information Chief Complaint And Reason For Visit No Information Reason For Referral Reason For Referral No Information History Of Present Illness Encounter Date Complaint History Of Prese nt Illness No Information Functional Status Date Functional Assessmen t No Information Instructions Date Instruction Additional Infor mation No Information Assessments Type Assessment Date No Information Patient Care Teams Name Effective Dates (start - stop) Status Members No Information
== END 2024-06-16 16:10 | disposition home or self-care (01) ==
PROVIDERS: PCP Family Medicine; Visit Provider Physician Assistant
DX: M06.09 Rheumatoid arthritis without rheumatoid factor, multiple sites (principal); R63.4 Abnormal weight loss; E07.9 Disorder of thyroid, unspecified; R79.89 Other specified abnormal findings of blood chemistry
CPT/HCPCS: 36415; 80053; 84439; 84443; 84481; 85025; 86140; 86376; 86703; G0432

== ENCOUNTER 2024-09-16 09:39 | Outpatient (CLI) | payer OTHER, SELFPAY ==
[2024-09-16 10:08] LABS: Basophils Absolute Auto 0.1 K/mm3 (0.0-0.1); Basophils Percent Auto 0.5 % (0.2-1.2); Eosinophils Absolute Auto 0.2 K/mm3 (0-0.3); Eosinophils Percent Auto 1.7 % (0-4.4); Hematocrit 38.6 % (37.0-47.0); Hemoglobin 12.6 g/dL (12.0-15.0); Immature Granulocyte Absolute 0.03 K/mm3 (0.00-0.031); Immature Granulocyte Percent A 0.3 % (0-0.5); Lymphocytes Absolute Auto 2.54 K/mm3 (0.9-3.2); Lymphocytes Percent Auto 26.3 % (18.3-44.2); Mean Corpuscular HGB Conc 32.6 g/dl (32-36); Mean Corpuscular Hemoglobin 32.1 pg (26-34); Mean Corpuscular Volume 98.2 fl (80-100); Mean Platelet Volume 9.6 fl (7.4-10.4); Monocytes Absolute Auto 0.5 K/mm3 (0.1-0.6); Monocytes Percent Auto 5.4 % (2.6-8.5); Neutrophils Absolute Auto 6.4 K/mm3 (1.3-6.7); Neutrophils Percent Auto 65.8 % (45.5-73.1); Platelet Count Result 273 k/mm3 (150-375); Red Blood Count 3.93 M/mm3 (4.2-5.4); Red Cell Distribution Width 12.9 % (11.5-14.5); White Blood Count 9.7 K/mm3 (4.5-10.0)
[2024-09-16 10:30] LABS: Alanine Aminotransferase 20 U/L (6-35); Albumin Level 4.6 g/dL (3.5-5.1); Alkaline Phosphatase 62 U/L (38-126); Anion Gap 9 mmol/L (4-12); Aspartate Amino Transferase 22 U/L (14-36); Bilirubin,Total 0.8 mg/dL (0.2-1.3); Blood Urea Nitrogen 11 mg/dL (7-17); CRP < 0.5 mg/dL (<1.0); Carbon Dioxide 22 mmol/L (22-30); Chloride 106 mmol/L (98-107); Estimated Glomerular Filt Rate > 60; Glucose 106 mg/dL (65-110); Potassium 4.7 mmol/L (3.4-5.0); Sodium 137 mmol/L (137-145)
--- OUTSIDE RECORDS SUMMARY | 2024-09-16 10:44 | XMS_ITS | Continuity of Care Document ---
Author Organization [facility] [employer] Address [address] [place] [address] Phone Care Team Providers Care Glass Inserter Name Role Phone Parisa Patel DMD Unavailable Unavailabl e Procedures Procedure Date Limit Oral Eval-prob Focused Intraoral Periapical First Balwinder 18 Intraor Periapical Ea Add Film 18 Bitewing Single Film Advance Directives Directive Yes / No Effective Date File Name No Information Encounters Encounter Description Practice Location Reason(s) For Visit Diagnoses Date Provider Providers Copied on Encounter [facility] [employer], [address], [place], [place], [id number], [place] tel:[phone] [facility] DEN-Acute apical periodontitis of pulpal origin 8 [address]. [address] [place], [place], [facility], . tel:[phone] Referring Provider: Parisa Jamison, [address], [place], [facility]. tel:[phone] Family History Family Member Type Diagnosis Age At Onset No Information Payers Payer name Insurance type Covered green party ID Authorkrishnaa shashi(s) D [employer] [id number] Social History Type Description Quantity Date Captured [...]
[2024-09-17 19:44] LABS: G-6-PD, RBC 18.5 U/g Hgb (7.0-20.5)
== END 2024-09-16 09:40 | disposition home or self-care (01) ==
LOC: ANHLAB 09:41
PROVIDERS: PCP Physician Assistant; Visit Provider Nurse Practitioner
DX: M06.09 Rheumatoid arthritis without rheumatoid factor, multiple sites (principal); G47.00 Insomnia, unspecified; M54.9 Dorsalgia, unspecified; Z79.1 Long term (current) use of non-steroidal anti-inflammatories (NSAID)
CPT/HCPCS: 36415; 80053; 82955; 85025; 86140

== ENCOUNTER 2025-03-27 11:35 | Outpatient (CLI) | payer OTHER, SELFPAY ==
[2025-03-27 13:17] LABS: Alanine Aminotransferase 39 U/L (6-35); Albumin Level 4.3 g/dL (3.5-5.1); Alkaline Phosphatase 63 U/L (38-126); Anion Gap 5 mmol/L (4-12); Aspartate Amino Transferase 34 U/L (14-36); Bilirubin,Total 0.7 mg/dL (0.2-1.3); Blood Urea Nitrogen 10 mg/dL (7-17); CRP < 0.5 mg/dL (<1.0); Calcium 9.2 mg/dL (8.4-10.2); Carbon Dioxide 24 mmol/L (22-30); Chloride 106 mmol/L (98-107); Estimated Glomerular Filt Rate > 60; Glucose 89 mg/dL (65-110); Potassium 4.8 mmol/L (3.4-5.0); Sodium 135 mmol/L (137-145); Total Protein 7.2 g/dL (6.3-8.2)
== END 2025-03-27 11:36 | disposition home or self-care (01) ==
LOC: ANHLAB 11:44
PROVIDERS: PCP Family Medicine; Visit Provider Nurse Practitioner
DX: M06.09 Rheumatoid arthritis without rheumatoid factor, multiple sites (principal); M54.9 Dorsalgia, unspecified; G47.00 Insomnia, unspecified; Z79.1 Long term (current) use of non-steroidal anti-inflammatories (NSAID); Z79.899 Other long term (current) drug therapy
CPT/HCPCS: 36415; 80053; 86140